=== PATIENT | male | born 1955 | race Caucasian/White ===

== ENCOUNTER 2018-03-19 07:28 | Day surgery (SDC) | payer BC ==
[2018-03-18 13:06] VITALS: BMI 25.7
[~2018-03-19 07:28] MED LIST: Cyclopentolate 1% Opth Drop 2 ML BOT FS SCH; Fluorouracil 100 MG, Enoxaparin Sodium 25 MG in Ophthalmic Irrigation Solution 500 ML IVPB SCH; Phenylephrine 2.5% Ophth Soln 5 ML BOT FS SCH
[2018-03-19] MEDS ORDERED: Phenylephrine 2.5% Ophth Soln 5 ML BOT ONE (07:46)
[2018-03-19] MEDS ORDERED: Cyclopentolate 1% Opth Drop 2 ML BOT ONE (07:46)
[2018-03-19] MEDS ORDERED: PROPOFOL 20 ML ONE (08:33)
[2018-03-19] MEDS ORDERED: Lidocaine 2% 10 ML INJ ONE (08:33)
[2018-03-19] MEDS ORDERED: Fentanyl 100 MCG/2 ML VIAL ONE (08:33)
[2018-03-19] MEDS ORDERED: Midazolam HCl 2 mg/2 ml Vial ONE (08:33)
--- NOTE | 2018-03-19 10:47 | OP ---
DATE OF PROCEDURE: 03/19/2018 PREOPERATIVE DIAGNOSIS: Epiretinal membrane, right eye. POSTOPERATIVE DIAGNOSIS: Epiretinal membrane, right eye. PROCEDURE: Pars plana vitrectomy and membrane peel, right eye. SURGEON: Dr. Brandon Mar ANESTHESIA: Local with monitored anesthesia care. PROCEDURE IN DETAIL: The patient was identified in the preoperative holding area. Appropriate infor med consent for the planned surgical procedure on the right eye was obtained. The patient was taken to the operative suite where appropriate cardiopulmonary monitoring was established. Local anesthesi a was obtained using retrobulbar and modified Van Lint lid block using 50/50 mixture of 4% lidocaine, 0.75% bupivacaine. The patient was prepped and draped in the usual sterile manner for ophthalmic harkins rgery on the right eye. Lid speculum was placed in the right eye. The 25-gauge trocars placed in co njunctiva and sclera supratemporally, inferotemporally, and supranasally. Infusion line was placed i nferotemporally. Light pipe and vitreous cutter were inserted into the eye. Core vitrectomy was per formed. Indocyanine green dye was infused on the posterior pole x1, identifying the epiretinal membr ane. This was elevated using a membrane scraper and peeled across the macula using end-gripping forc eps. Indirect ophthalmoscopy was used to examine the retina 360 degrees. No holes, breaks or tears were identified. Trocars were removed. Eye was noted to retain pressure well. Retrobulbar Kenalog and subconjunctival Ancef were placed. Atropine and antibiotic ointment were placed, and the eye was patched and shielded. The patient was taken to the postoperative recovery unit in good condition rm milan suffered no immediate perioperative complications. DISCHARGE INSTRUCTIONS: The patient was instructed to keep patch and shield on, avoid lifting or oneil ding and follow up in the morning with Dr. Mar.
[2018-03-19] MEDS ORDERED: PROPOFOL 200 MG/20 ML VIAL ONE (14:29)
[2018-03-19] MEDS ORDERED: Lidocaine 1% PF 5 ML VIAL ONE (14:29)
== END 2018-03-19 10:05 | disposition home or self-care (01) ==
LOC: SDC 07:28
PROVIDERS: ATTEND Ophthalmology Retina Specialist
PROC: 08NE3ZZ Release Right Retina, Percutaneous Approach (ICD-10-PCS; principal; 2018-03-19)
PROC: 08T43ZZ Resection of Right Vitreous, Percutaneous Approach (ICD-10-PCS; principal; 2018-03-19)
DX: H35.371 Puckering of macula, right eye (principal); Z88.1 Allergy status to other antibiotic agents
CPT/HCPCS: J1650; J2001; J2250; J2704; J3010; J9190